=== PATIENT | male | born 1965 | race Caucasian/White ===

== ENCOUNTER → 2025-10-08 13:40 | Outpatient (BNVA) | payer OTHER, SELFPAY | PROVIDERS: PCP Family Medicine; Visit Provider Family Medicine | DX: M25.562 Pain in left knee (principal) | CPT/HCPCS: 73562 ==

== ENCOUNTER → 2025-10-11 14:00 | Outpatient (BNVA) | payer OTHER, SELFPAY | PROVIDERS: PCP Family Medicine; Referring Provider Family Medicine; Visit Provider Internal Medicine Cardiovascular Disease | DX: R07.9 Chest pain, unspecified (principal); I49.8 Other specified cardiac arrhythmias | CPT/HCPCS: 93005 ==

== ENCOUNTER 2025-10-12 07:52 | Outpatient (CLI) | payer OTHER, SELFPAY ==
--- NOTE | 2025-10-12 08:00 | MR_ITS ---
WS: [id number] MRI LEFT KNEE NONCONTRAST TECHNIQUE: Axial PD, coronal PD fat sat, coronal PD, sagittal PD, and sagittal PD fat-sat images obtained. CLINICAL INFORMATION: meniscus tear FINDINGS: Moderate to advanced tricompartmental arthritis. Distal quadriceps and patella tendons are intact. Hypertrophic patella. Grade IV chondromalacia patella. Slight subchondral edema. ACL and PCL appear intact. Normal lateral meniscus. Horizontal tear of the medial meniscus with peripheral extrusion extending to the articular surface. This extends to the meniscal root with peripheral extrusion and blunting. Grade IV chondromalacia patella. Small amount of subchondral edema. Medial and lateral patellar retinaculum appear intact. Lobulated popliteal cyst measuring 5.1 x 1.8 cm. Medial and lateral collateral ligaments are intact. MR/MR knee LT wo con* [id number] IMPRESSION: 1. Moderate to advanced tricompartmental arthritis. 2. ACL and PCL appear intact. 3. Grade IV chondromalacia patella. 4. Horizontal tear of the medial meniscus with peripheral extrusion extending to the articular surface and meniscal root with blunting. 5. Lobulated popliteal cyst measuring 5.1 x 1.8 cm Outbridge grading: grade IV: full-thickness cartilage loss with underlying bone reactive changes
== END 2025-10-12 07:53 | disposition home or self-care (01) ==
LOC: RAD 07:53
PROVIDERS: PCP Family Medicine; Visit Provider Family Medicine
DX: S83.249A Other tear of medial meniscus, current injury, unspecified knee, initial encounter (principal); X58.XXXA Exposure to other specified factors, initial encounter; M17.12 Unilateral primary osteoarthritis, left knee; M22.42 Chondromalacia patellae, left knee; M71.22 Synovial cyst of popliteal space [Baker], left knee
CPT/HCPCS: 73721

== ENCOUNTER → 2025-10-15 14:33 | Outpatient (BNVA) | payer OTHER, SELFPAY | PROVIDERS: PCP Family Medicine; Visit Provider Nurse Practitioner | DX: Z01.818 Encounter for other preprocedural examination (principal); S83.222A Peripheral tear of medial meniscus, current injury, left knee, initial encounter; M17.12 Unilateral primary osteoarthritis, left knee; M22.42 Chondromalacia patellae, left knee; X58.XXXA Exposure to other specified factors, initial encounter | CPT/HCPCS: 36415; 73560; 73565; 80053; 81001; 85025 ==

== ENCOUNTER 2025-10-18 10:46 | Day surgery (SDC) | payer OTHER, SELFPAY ==
[2025-10-18] VITALS (12 sets, daily range): BP systolic 98–130; BP diastolic 60–89; PULSE 64–92; RESP 12–20; TEMP 36.2–36.6; O2SAT 93–98; BMI 30.8
--- NOTE | 2025-10-18 11:51 | ANES.PREANE2 ---
Pre-Anesthetic Assessment Height/Weight: Height 5 ft 10 in Weight 215 lb Temp Pulse Resp BP Pulse Ox O2 Del Method 97.7 F 78 16 130/89 97 Room Air 10/18/25 10:59 10/18/25 10:59 10/18/25 10:59 10/18/25 10:59 10/18/25 10:59 10/18/25 11:19 Preop Diagnosis: Knee pain Operation Date: 10/18/25 12:30 Proposed Procedures p Knee Arthroscopy(Left) - Nitza Laird MD s Meniscectomy Arthroscopy Knee, Chondroplasty of Posterior Patella(Left) - Nitza Laird MD Was Beta Ramón taken within 24 hours: Yes Was Clonidine taken within 24 hours: N/A Last intake: Intake Last Liquid Date 10/17/25 Last Liquid Time 19:30 Last Solid Date 10/17/25 Last Solid Time 19:30 Social No alcohol and No tobacco Exam alert, oriented x 3, clear to auscultation bilaterally and regular rate & rhythm Airway Submandibular: within normal limits Cervical ROM: within normal limits Mallampati: Class II Dentition: full Anesthetic Plan ASA status: 2 Anesthesia: General Other: No prior issues with anesthesia NPO since yesterday evening History of hypertension on losartan and metoprolol Chronic Ozempic, last taken on 10/07/2025 Labs reviewed from 10/15/2025 and acceptable for procedure today EKG sinus rhythm Plan for general anesthesia Medications/Allergies Home Medications ?Medication ?Instructions ?Recorded ?Confirmed ?Last Taken ?Type cyclobenzaprine 10 mg tablet 10 mg PO TID PRN muscle spasm #30 08/24/25 10/17/25 10/14/25 Rx tabs meloxicam 15 mg tablet 15 mg PO DAILY #90 tabs 08/24/25 10/17/25 10/08/25 Rx potassium citrate 15 mEq (1,620 15 meq PO BID #180 tabs 08/24/25 10/17/25 10/16/25 Rx mg) tablet,extended release losartan 100 mg tablet 100 mg PO DAILY #90 tabs 10/11/25 10/17/25 10/17/25 Rx semaglutide (weight loss) 2.4 2.4 mg SUBCUT Q7D 10/15/25 10/17/25 10/07/25 History mg/0.75 mL subcutaneous pen injector metoprolol succinate 50 mg 50 mg PO QPM 10/17/25 10/17/25 10/17/25 History tablet,extended release 24 hr rosuvastatin 20 mg tablet 20 mg PO QPM 10/17/25 10/17/25 10/16/25 History tamsulosin 0.4 mg capsule 0.8 mg PO QPM 10/17/25 10/17/25 10/17/25 History zolpidem 10 mg tablet (Ambien) 10 mg PO QPM 10/17/25 10/17/25 10/17/25 History Allergies Allergy/AdvReac Type Severity Reaction Status Date / Time Penicillins Allergy ALGY-Rash Verified 10/15/25 14:57 [facility] Anesthesia Medical History (Updated 10/15/25 @ 18:27 by JEREL Marquez) Chondromalacia patellae of left knee Primary osteoarthritis of left knee BPH (benign prostatic hyperplasia) Hypertriglyceridemia History of nephrolithiasis Presence of stent in coronary artery in patient with coronary artery disease Obesity, Class I, BMI 30-34.9 Hypertension Insomnia Hx of myocardial infarction History of trigger finger x2 surgeries Surgical History Hx of gastric bypass Hx of heart artery stent Family History Mother Congestive heart failure (CHF) Diabetes Hypertension Father Lung cancer Social History Smoking and tobacco/nicotine status: never used tobacco/nicotine Alcohol intake: never Substance/Drug Use: never
[2025-10-18] MEDS: acetaminophen 1,000 MG/100 ML PIGGYBACK 400 MG IV (12:04)
--- NOTE | 2025-10-18 13:35 | P.HPUD_ITS ---
Surgery/Procedure H&P Update DATE OF PROCEDURE: October 18, 2025 DATE H&P PERFORMED: 10/15/25 H&P UPDATE INFORMATION: I have reviewed H&P completed within last 30 days, I have examined patient prior to procedure, No changes to prior documentation, H&P is in [facility] EMR on date indicated and Risks and benefits of the procedure reviewed PREOP DIAGNOSIS: Knee pain PRIMARY INDICATION FOR PROCEDURE: Date of Service: 10/12/25 Procedure(s): MR knee LT wo con* [id number] IMPRESSION: 1. Moderate to advanced tricompartmental arthritis. 2. ACL and PCL appear intact. 3. Grade IV chondromalacia patella. 4. Horizontal tear of the medial meniscus with peripheral extrusion extending to the articular surface and meniscal root with blunting. 5. Lobulated popliteal cyst measuring 5.1 x 1.8 cm PLANNED PROCEDURE: Operation Date: 10/18/25 12:30 Proposed Procedures p Knee Arthroscopy(Left) - Nitza Laird MD s Meniscectomy Arthroscopy Knee, Chondroplasty of Posterior Patella(Left) - Nitza Laird MD Related Problem List Diagnoses 1. Primary osteoarthritis of left knee: 2. Chondromalacia patellae of left knee: 3. Peripheral tear of medial meniscus of left knee as current injury, initial encounter: Qualifiers: Tear current or old: current Encounter type: initial encounter Meniscus tear of knee type: peripheral Laterality: left
--- NOTE | 2025-10-18 13:38 | PM.OP ---
Operative Report Date of procedure: October 18, 2025 Pre-op diagnosis: Medial meniscal tear left knee Primary osteoarthritis left knee Chondromalacia patella of left knee Post-op diagnosis: Medial meniscal tear anterior horn left knee Lateral meniscal tear, inner rim Primary osteoarthritis of the left knee with chondromalacia patella Post-op findings: Left anterior medial meniscal tear, inner rim lateral meniscal tear, and severe chondromalacia and denudement of cartilage over the medial femoral condyle, medial tibial plateau, lateral tibial plateau, and patella. Procedure done: Left arthroscopic knee surgery with partial medial and lateral meniscectomies, chondroplasty lateral tibial plateau with shaver and heat wand, debridement of cartilage and chondroplasty medial femoral condyle and medial tibial plateau as well as patella and trochlear groove Implants: None Specimens removed/disposition: None Pathology: None Surgeon: Nitza Laird MD Warehouse Examiner: Doris Danielle, nurse practitioner, whose services were required for maintaining position of the knee during the arthroscopic procedure as well as performance of the procedure and closure. Anesthesia: General (Per LMA, ASA 3) Estimated blood loss (mL): 2 Tourniquet time (min): 44 (250 mmHg) IV fluids (mL): 900 Urine output (mL): 0 (No Diggs) Complications: None Findings: Severe degenerative osteoarthritis involving all 3 compartments with degenerative type tearing of the anterior horn the medial meniscus and inner rim of the lateral meniscus. Condition: stable Disposition: PACU (Then return to the surgery for discharge to home) Brief History: This 60-year-old gentleman presented to the office complaining of severe left knee pain. Upon presentation, he had an MRI from [facility] on October 12, 2025. Findings on this included moderately advanced tricompartmental arthritis with a horizontal tear of the medial meniscus. Because of the meniscal tear, the patient wished to proceed with arthroscopic intervention prior to discussing any other sort of treatment. He understood that there is a low potential for benefit, but he felt that he had immediate onset of this pain after twisting his knee, and wanted to proceed with the arthroscopic procedure. Risks and complications were discussed with him. Consents were signed and questions were answered. Further opportunity for questions was offered on the day of surgery. Procedure: Patient was brought to the operating theater and after undergoing adequate general anesthesia per LMA, ASA 3 , the patient's left lower extremity was prepped and draped in usual fashion utilizing DuraPrep. A tourniquet was placed high on the leg prior to prepping and draping. The tourniquet was elevated prior to commencement of the surgical procedure to 250 mmHg. Total tourniquet time was 44 minutes. Elevation followed prepping and exsanguination. Prior to commencement of the surgical procedure, a surgical pause was performed. At the time of the surgical pause, we identified the site and side of surgery. We also confirmed the patient's identity and appropriate and timely administration of preoperative antibiotics. Preoperative surgical markings were also visualized at this time. Standard arthroscopic portals were utilized including superolateral, inferomedial, and inferolateral portals. The examination commenced in the suprapatellar pouch area where the patient was noted to have significant synovitis as well as severe degenerative osteoarthritic change on both the trochlear groove and patella. The arthroscope was then passed in the medial compartment where there was noted to be severe degenerative arthritic change of the medial femoral condyle and medial tibial plateau. There was also change within the medial meniscus. The arthroscope was then passed across the notch area where anterior cruciate ligament was visualized and found to be intact. The scope was passed into the lateral compartment with the knee in a [id number] position. There was a large osteochondral defect within the medial aspect of the lateral tibial plateau. This was debrided with the intra-articular shaver and the heat wand as well. Meniscus was evaluated, and there was found to be inner rim meniscal tearing. This was addressed with the intra-articular shaver and heat wand. After it was debrided, it was palpated and found to be intact. It was not displaceable into the knee joint. Scope was then returned to the medial compartment where further synovectomy was performed. Chondroplasty was performed. The meniscus was debrided with the heat wand and shaver. The meniscus was palpated and found to be not displaceable into the knee joint. The arthroscope was then returned to the patellofemoral joint where a chondroplasty was performed of the undersurface of the patella and the trochlear groove. This chondroplasty involved use of the intra-articular shaver as well as the heat wand. Once the patella had been addressed, the scope was passed back through the knee compartments to evaluate for other abnormalities. Finding none, attention was directed to closure. The knee was copiously irrigated and suctioned dry. Following this, each portal was closed with a simple suture followed by Dermabond and Tegaderm. Additionally, the knee was injected with 20 mL of half percent ropivacaine, dexamethasone, Kenalog, and 8 mg of morphine. Additional 10 mL of ropivacaine was placed about the portals. Sterile dressing was placed consisting of the Tegaderm followed by the Fausto wrap. Patient was returned to Recovery Room in satisfactory condition where he will be discharged home to follow-up with me in the office as scheduled. There were no complications and no specimens. Related Problem List Diagnoses 1. Peripheral tear of medial meniscus of left knee as current injury, initial encounter: 2. Complex tear of lateral meniscus of left knee as current injury, initial encounter: 3. Primary osteoarthritis of left knee: 4. Chondromalacia patellae of left knee:
[2025-10-18] MEDS: ROPivacaine 0.5% SDV 30 mL 150 MG INJECTION (15:08)
[2025-10-18] MEDS: morphine 4 mg/mL SDV 1 mL XX ×2 (15:08)
[2025-10-18] MEDS: triamcinolone 40 mg/mL SDV INJECTION (15:08)
--- NOTE | 2025-10-18 17:30 | ANE.PACU2 ---
Inpatient post-anesthesia follow up: Airway intact: Yes Vital signs: Temperature 97.9 F Pulse Rate 68 Respiratory Rate 16 Blood Pressure 122/79 Pulse Oximetry 98 Oxygen Delivery Me thod Room Air Oxygen Flow Rate Fraction of Inspir ed Oxygen Hydration adequate: Yes Nausea and vomiting: No Pain level: 1 Mental status: Baseline
== END 2025-10-18 17:30 | disposition home or self-care (01) ==
PROVIDERS: PCP Family Medicine; Visit Provider Specialist
PROC: (CPT 29870; principal; 2025-10-18 12:20)
PROC: (CPT 29880; 2025-10-18 12:20)
DX: S83.242A Other tear of medial meniscus, current injury, left knee, initial encounter (principal); X58.XXXA Exposure to other specified factors, initial encounter; M17.12 Unilateral primary osteoarthritis, left knee; M22.42 Chondromalacia patellae, left knee; I10 Essential (primary) hypertension; E66.9 Obesity, unspecified; Z68.30 Body mass index [BMI] 30.0-30.9, adult; I25.2 Old myocardial infarction; Z95.5 Presence of coronary angioplasty implant and graft
CPT/HCPCS: 29880; J0131; J1100; J2250; J2270; J2405; J2704; J2795; J3010; J3301; J3490; J7030; J9999